=== PATIENT | male | born 1995 | race Two or more races ===

== ENCOUNTER 2017-03-17 17:32 | Emergency (ER) | payer SELFPAY ==
[~2017-03-17] VITALS: Ht 172.7 cm; Wt 99.8 kg
[2017-03-17 17:35] VITALS: BP 0/90
[2017-03-17] MEDS ORDERED: AZITHROMYCIN 250 MG TABLET PO ONE (19:00)
[2017-03-17] MEDS ORDERED: CEFTRIAXONE 500 MG VIAL IM ONE (19:00)
[2017-03-17] MEDS ORDERED: IBUPROFEN 400 MG TABLET PO ONE (19:00)
[2017-03-17] MEDS ORDERED: CEFTRIAXONE 500 MG VIAL ONE (19:02)
[2017-03-17] MEDS ORDERED: IBUPROFEN 400 MG TABLET ONE (19:03)
[2017-03-17] MEDS ORDERED: AZITHROMYCIN 250 MG TABLET ONE (19:03)
== END 2017-03-17 19:17 | disposition home or self-care (01) ==
LOC: ER 17:38
DX: N45.1 Epididymitis (principal)
CPT/HCPCS: 96372; 99283; A4606; J0696; Z7610